=== PATIENT | female | born 2005 | race Two or more races ===

== ENCOUNTER 2025-03-09 14:07 | Outpatient (REF) | payer BC, SELFPAY ==
--- OUTSIDE RECORDS SUMMARY | 2025-03-09 15:37 | XMS_ITS | Clinical Summary ---
Author Organization [facility] Address [address] [place] [phone] Phone Care Team Providers Care Layup Worker Name Role Phone Carline Mcmullen M.D., M.D. Primary Care Prov ider Source Comments NOTE: The information displayed by Care Everywhere is extracted from the complete medical record and may not identify all current or past patient conditions.[facility] Allergies No known active allergies Medications No known medications Active Problems No known active problems Immunizations Immunization Administration Dates Next Due DTaP (Diphtheria, Tetanus, a cellular Pertussis) 06/26/2015,07/03/2008,09/25/2005,2004,2004 SIjA-XBS-UHI (Diphtheria, Te tanus, acellular Pertussis, Hepatitis B, Polio) 02/07/2005 NDmW-DHH-ECG (PEDIARIX) (Dip htheria, Tetanus, Acellular pertussis, Hepatitis B, Polio) 02/07/2005 HAV (Hepatitis A) 04/06/2008,08/17/2007 HBV (Hepatitis B) 2004,2004,07/01/20 04 HIB (Haemophilus influenzae b) 6,02/07/2005,2004,2003 HPV9 (Human Papillomavirus) 9 valent 01/10/2016, 08/29/2015,06/26/2015 INF [id number] (Influenza, 2009 type) unspecified formulation 07/13/2009 INFS Pres Free 6mos-Adult (F lulaval Quadrivalent) (Influenza) 06/16/2018 INFan (Influenza attenuated virus, intranasal) 08/26/2016,06/30/2015,07/06/2013 MENcnACWY (Meningococcal con jugate, groups ACWY-135) 06/26/2015 MMR (Measles, Mumps, Rubella) 07/03/2008, 006 PCV7 (PREVNAR) (Pneumococcal conjugate, 7 valent) 05/04/2009,09/06/2005,02/07/2005,2003 KAREN-IPV (Polio, Inactivated virus) 07/03/2008,,2004 TB-PPD, (TB skin test) 01/26/2017 Tdap (Tetanus, diphtheria, a cellular pertussis) 06/26/2015 NIC (Varicella, chickenpox) 07/03/2008, 6 Social History Tobacco Use Types Packs/Day Years Used Date Smoking Tobacco: Never Smokeless Tobacco: Never Comments No Sex and Gender Information Value Date Recorded Sex Assigned at Not on file Legal Sex Female 5:10 PM EST Gender Identity Not on file Sexual Orientation Not on file Last Filed Vital Signs Vital Sign Reading Time Taken Comments Blood Pressure 106/69 02/13/2019 9:51 AM EDT Pulse 87 02/13/2019 9:51 AM EDT Temperature 36.7 C (98 F) 02/13/2019 9:51 AM EDT Respiratory Rate 16 02/13/2019 9:51 AM EDT Oxygen Saturation 100% 02/13/2019 9:51 AM EDT Inhaled Oxygen Concentration - - Weight 50.9 kg (112 lb 3.4 oz) 02/13/2019 9:51 A M EDT Height 170.5 cm (5' 7.13 ) 02/13/2019 9:51 AM ED T Body Mass Index 17.51 02/13/2019 9:51 AM EDT Plan of Treatment Not on file Care Teams Layup Worker Relationship Specialty Start Date End Date Carline Mcmullen M.D., MAbril [address] [place] [id number] PCP - General 10/03/17
[2025-03-09 17:14] LABS: MANUAL DIFF FLAG NO
[2025-03-09 17:17] LABS: Basophils Absolute Auto 0.1 X10*3/uL (0.0-0.2); Basophils Percent Auto 0.9 % (0-2); Eosinophils Absolute Auto 0.1 X10*3/uL (0.0-0.4); Eosinophils Percent Auto 1.1 % (0-4); Hematocrit 42.6 % (37.0-47.0); Hemoglobin 14.3 g/dl (12.0-16.0); Imm Gran Abs Auto 0.02 X10*3/uL (0.00-0.03); Imm Gran Pct Auto 0.4 % (0.0-0.4); Lymphocytes Absolute Auto 1.4 X10*3/uL (1.2-4.9); Lymphocytes Percent Auto 25.7 % (20-40); Mean Corpuscular HGB Conc 33.6 g/dl (31.0-35.0); Mean Corpuscular Hemoglobin 30.7 pg (27.0-33.0); Mean Corpuscular Volume 91.4 fL (80.0-98.0); Mean Platelet Volume 10.8 fL (9.4-12.3); Monocytes Absolute Auto 0.3 X10*3/uL (0.1-1.2); Monocytes Percent Auto 5.8 % (2-11); Neutrophils Absolute Auto 3.7 x10*3/uL (2.0-8.3); Neutrophils Percent Auto 66.1 % (45-73); Platelet Count 262 X10*3/uL (160-400); Red Blood Count 4.66 X10*6/uL (4.20-5.50); Red Cell Distribution Width 12.5 % (11.0-16.0); White Blood Count 5.5 X10*3/uL (4.8-10.8)
[2025-03-09 18:04] LABS: Alanine Aminotransferase 18 U/L (0-31); Albumin Level 4.5 g/dL (3.5-5.0); Alkaline Phosphatase 63 U/L (39-117); Aspartate Amino Transferase 71 U/L (5-31); Bilirubin Direct 0.4 mg/dL (0.0-0.5); Bilirubin Total 1.1 mg/dL (0.0-1.0); Cholesterol 115 mg/dL (<200); HDL Cholesterol 47 mg/dL (>40); LDL Cholesterol Calculated 48 mg/dL (<100); Total Protein 7.2 g/dL (6.5-8.0); Triglycerides 100 mg/dL (<150)
== END 2025-03-09 14:08 | disposition home or self-care (01) ==
LOC: HO.HMGCLDS 14:07
PROVIDERS: PCP Student in an Organized Health Care Education/Training Program; Visit Provider Physician Assistant
DX: L70.0 Acne vulgaris (principal); Z13.6 Encounter for screening for cardiovascular disorders
CPT/HCPCS: 36415; 80061; 80076; 85025